=== PATIENT | female | born 1935 | race Caucasian/White ===

== ENCOUNTER 2016-03-28 05:07 | Inpatient (IN) | payer OTHER ==
[2016-03-04 13:46] VITALS: BMI 32.0
--- NOTE | 2016-03-04 14:36 | PAT Medication Instructions ---
Service Date Mar 04, 2016. Current Home Medication List Acetaminophen (Tylenol), 500 MG PO PRN Ascorbic Acid (Vitamin C), 500 MG PO QAM Calcium/Vitamin D (Os-Juan 500 Plus D), 1 TAB PO QAM Celecoxib (CeleBREX), 200 MG PO QAM Escitalopram Oxalate (Lexapro), 20 MG PO QAM Fish Oil ([place]-3), 1 CAP PO BID Fluticasone Furoate-Vilanterol (Breo Ellipta 200-25 Mcg/INH), 1 DOSE INH QAM Iron W/ Vitamins (Geritol Complete), 1 TAB PO QAM Magnesium Oxide (Mg Supplement (Magnesium), 400 MG PO QAM Valsartan (Diovan), 320 MG PO QAM [Arthromax], 900 MG PO BID [Nitrovasc], 500 MG PO QAM [Otc Eye Drops], 1 DROP OPB HS Medication Instructions For Your Scheduled Surgery - Continue per surgeon for instructions: Celecoxib (CeleBREX), 200 MG PO QAM - Hold the following medications 2 weeks prior to surgery: Fish Oil ([place]ra-3), 1 CAP PO BID [Nitrovasc], 500 MG PO QAM - Hold the following medications the morning of surgery: Valsartan (Diovan), 320 MG PO QAM Magnesium Oxide (Mg Supplement (Magnesium), 400 MG PO QAM Iron W/ Vitamins (Geritol Complete), 1 TAB PO QAM Ascorbic Acid (Vitamin C), 500 MG PO QAM Calcium/Vitamin D (Os-Juan 500 Plus D), 1 TAB PO QAM [Arthromax], 900 MG PO BID - Take the following medications the morning of surgery with a sip of water: Fluticasone Furoate-Vilanterol (Breo Ellipta 200-25 Mcg/INH), 1 DOSE INH QAM Escitalopram Oxalate (Lexapro), 20 MG PO QAM Acetaminophen (Tylenol), 500 MG PO PRN (if needed) - Take the following medications as scheduled the night before surgery: [Otc Eye Drops], 1 DROP OPB HS Acetaminophen (Tylenol), 500 MG PO PRN Arthromax], 900 MG PO BID If you have any questions please call us at [phone] (Yvette Rahman PA-C) or [phone] or [phone]
[2016-03-04 15:05] LABS: BASO % 0.2 %; BASO ABS # 0.02 K/uL (0-0.2); COMPLETE YES; HEMATOCRIT 42.1 % (37-47); IG% 0.4 %; LYMPH % 19.1 %; LYMPH ABS # 1.58 K/uL (1.2-3.4); MEAN CORPUSCULAR HEMOGLOBIN 30.1 pg (25-34); MEAN CORPUSCULAR HGB CONC 33.5 g/dl (32-36); MEAN PLATELET VOLUME 10.2 fL (7.4-10.4); MONO % 8.6 %; NEUT % 68.7 %; PLATELET COUNT 241 K/uL (130-400); RED BLOOD COUNT 4.68 M/uL (4.2-5.4); WHITE BLOOD COUNT 8.29 K/uL (4.8-10.8)
[2016-03-04 15:07] LABS: URINE APPEARANCE CLEAR (CLEAR); URINE BILIRUBIN NEG (NEG); URINE COLOR YELLOW; URINE NITRITE NEG (NEG); URINE SPECIFIC GRAVITY 1.028 (1.000-1.030); UROBILINOGEN NEG (NEG); ZZUR CULT IF INDIC CLEAN CATCH NO
[2016-03-04 15:10] LABS: MANUAL MICROSCOPIC REQUIRED? NO; REVIEW REQ? NO
[2016-03-04 15:16] LABS: PROTHROMBIN TIME (PATIENT) 10.2 SECONDS (9.0-12.0)
[2016-03-04 15:25] LABS: CALCIUM 8.8 mg/dl (8.5-10.1); CREATININE 0.57 mg/dl (0.60-1.20); POTASSIUM 4.4 mmol/L (3.5-5.1)
--- NOTE | 2016-03-04 15:25 | DIAGNOSTIC IMAGING REPORT ---
CHEST 2 VIEWS ROUTINE CLINICAL HISTORY: Preoperative chest COMPARISON STUDY: No previous studies for comparison. FINDINGS: The heart is mildly enlarged. There is no failure. No pleural effusions are visualized. There is no lobar consolidation. Increased markings at the right medial lung base, likely represent a summation of vascular markings and fat pad.[ IMPRESSION: Mild cardiac enlargement. No evidence of focal pulmonary consolidation. No evidence of failure. Electronically signed by: Lon Atkins M.D. 03/04/2016 3:23 PM Dictated Date/Time: 03/04/2016 3:22 PM
--- NOTE | 2016-03-27 09:09 | HISTORY & PHYSICAL EXAMINATION ---
DATE OF ADMISSION: 03/28/2016 CHIEF COMPLAINT: Right knee pain. HISTORY OF PRESENT ILLNESS: Valencia is a 80-year-old female with a multiple-year history of pain in her right knee. The patient rates her pain a 9/10. She has pain with her daily activities. Pain is worse with weightbearing. She uses a cane and has had injections without relief. Her pain has gotten significantly worse since November and she is now scheduled for right knee replacement. PAST MEDICAL HISTORY: Hypertension, anxiety and asthma. She denies heart disease, diabetes or DVT. PAST SURGICAL HISTORY: Nasal polyps, hysterectomy and breast reduction. SOCIAL HISTORY: The patient denies alcohol or tobacco use. She lives in a 2-story home. She lives alone and is retired. FAMILY HISTORY: Positive for diabetes and negative for DVT. MEDICATIONS: Valsartan 320 mg daily, Lexapro 20 mg daily, Celebrex 200 mg daily, omega 3, ArthroMax, NitroVasc and Breo. ALLERGIES: None. REVIEW OF SYSTEMS: See HPI. Ten other systems reviewed, all negative. PHYSICAL EXAMINATION: VITAL SIGNS: Height 5 feet 2 inches, weight 176 pounds, BMI 32. GENERAL: This is a well-developed, well-nourished female who is alert and oriented x3. Mood and affect are appropriate. HEENT: Normocephalic, atraumatic. Mucous membranes are moist and intact. NECK: Supple without lymphadenopathy. HEART: Regular rate and rhythm without murmurs, rubs or gallops. LUNGS: Clear to auscultation without wheezes or rhonchi. ABDOMEN: Soft and nontender. Bowel sounds are equal and active. EXTREMITIES: No ecchymosis, redness or warmth. She has varus deformity. Range of motion is from 10-100 degrees. She has no laxity. She is neurovascularly intact with +5/5 strength. X-RAY EXAMINATION: AP and lateral views show joint space narrowing and osteophyte formation. IMPRESSION: Degenerative joint disease, right knee. PLAN: The patient will be admitted for a right total knee arthroplasty. We will plan on aspirin for DVT prophylaxis. The patient is likely going to go to a [facility] facility versus acute rehab postop.
[2016-03-28] VITALS (8 sets, daily range): BP systolic 99–158; BP diastolic 62–105; PULSE 67–88; TEMP 36.4–36.8; O2SAT 91–98; Ht 157.5 cm; Wt 80.7 kg
[~2016-03-28] VITALS: Ht 157.5 cm; Wt 80.7 kg
[~2016-03-28 05:07] MED LIST: ACET-1256 PO; ASCO1CAP3 PO; CALC500C70 PO; CLB/200 PO; ESCI1TAB10 PO; FLUT1INH7 INH; IRON1TAB4 PO; MAGN1CAP2 PO; OMEG10007 PO; OTC EYE DROPS OPB; VALS320T PO; [UNRECOGNIZED DRUG - OTHER] PO; [UNRECOGNIZED DRUG - OTHER] PO
[2016-03-28] MEDS ORDERED: CEFAZOLIN 2000 MG/60 ML D5W 60 ML IV SCH (06:00)
[2016-03-28] MEDS ORDERED: VANCOMYCIN INJ 400 MG in NSS 100ML IR SCH (06:00)
[2016-03-28] MEDS ORDERED: CeleBREX 200 MG CAP PO SCH (06:00)
[2016-03-28] MEDS ORDERED: LACTATED RINGER'S 1000ML 500 ML IV ONE (06:00)
[2016-03-28] MEDS ORDERED: ACETAMINOPHEN 500 MG TAB PO SCH (06:00)
[2016-03-28] MEDS ORDERED: DEXAMETHASONE 4 MG TAB PO SCH (06:00)
[2016-03-28] MEDS ORDERED: POLYMYXIN B SULFATE 100,000 UNITS in NSS 100ML IR SCH (06:00)
[2016-03-28] MEDS ORDERED: OXYCODONE HCL 10 MG TABCR (OXYCONTIN) PO SCH (06:00)
[2016-03-28] MEDS ORDERED: GABAPENTIN 300 MG CAP PO SCH (06:00)
[2016-03-28] MEDS ORDERED: METOCLOPRAMIDE HCL 10 MG TAB PO SCH (06:00)
[2016-03-28] MEDS ORDERED: LACTATED RINGER'S 1000ML 1,000 ML IV SCH (06:00)
[2016-03-28] MEDS ORDERED: LACTATED RINGER'S 1000ML IV SCH (06:00)
[2016-03-28] MEDS ORDERED: ROPIVACAINE 5MG/ML 30 ML 150 MG, BUPIVACAINE/EPINEPHR 0.5% MPF 30 ML, KETOROLAC TROMETH... INFIL SCH ×7 (06:00)
[2016-03-28] MEDS ORDERED: FAMOTIDINE 20 MG TAB PO SCH (06:00)
[2016-03-28] MEDS: TRANEXAMIC ACID INJ 1,000 MG in SODIUM CHLORIDE 0.9% 100ML 100 ML IV SCH ×2 (06:14→06:30)
[2016-03-28] MEDS ORDERED: POVIDONE-IODINE OP SOLN 30 ML BTL ONE ×2 (06:27→07:34)
[2016-03-28] MEDS ORDERED: ORTHO JOINT ANESTHETIC ONE (06:27)
[2016-03-28] MEDS ORDERED: BUPIVACAINE/EPINEPHRINE 0.25% 1:200,000 30 ML VIAL ONE (06:27)
[2016-03-28] MEDS ORDERED: BUPIVACAINE 0.25% 30 ML VIAL ONE (06:28)
[2016-03-28] MEDS ORDERED: BUPIVACAINE 0.5 % 5 MG/1 ML PF 10ML VIAL ONE (06:28)
[2016-03-28] MEDS ORDERED: BACITRACIN 50000 UNIT VIAL ONE (06:29)
[2016-03-28] MEDS ORDERED: MIDAZOLAM HCL 1 MG/ML 2ML VIAL ONE ×2 (06:40→06:46)
--- NOTE | 2016-03-28 06:44 | History & Physical Bridge Note ---
H&P Re-Evaluation Bridge Note: I have examined the patient, reviewed the History & Physical and in the interval since the performance of the History & Physical I have noted the following changes of clinical significance: No changes noted
[2016-03-28] MEDS ORDERED: LIDOCAINE HCL 1% 20 ML VIAL ONE (07:07)
[2016-03-28] MEDS ORDERED: METHYLPREDNISOLONE ACETATE 80 MG/ML VIAL ONE (07:08)
[2016-03-28] MEDS ORDERED: HYDROmorphone INJ 1 MG/ML SYR IV PRN (08:00)
[2016-03-28] MEDS ORDERED: ONDANSETRON INJ 2 MG/ML 2 ML VIAL IV PRN ×2 (08:00→08:45)
[2016-03-28] MEDS ORDERED: FENTANYL CITRATE INJ 50 MCG/1 ML 2 ML VIAL IV PRN (08:00)
[2016-03-28] MEDS ORDERED: MEPERIDINE HCL 25 MG/ML CARP IV PRN (08:00)
[2016-03-28] MEDS ORDERED: ATROPINE SULFATE 0.1 MG/ML 5ML SYR IV PRN (08:00)
[2016-03-28] MEDS ORDERED: EpHEDrine SULFATE INJ 50 MG/ML AMP IV PRN (08:00)
[2016-03-28] MEDS ORDERED: LABETALOL HCL IV 5 MG/ML 20ML IV PRN (08:00)
[2016-03-28] MEDS ORDERED: PROPOFOL IV EMULSION 10 MG/ML 20 ML VIAL IV ONE ×2 (08:03→08:26)
[2016-03-28] MEDS ORDERED: PHENYLEPHRINE 100MCG/ML 5ML SYR ONE (08:03)
--- NOTE | 2016-03-28 08:41 | [facility] Post Operative Brief Note ---
Immediate Operative Summary Operative Date Mar 28, 2016. Pre-Operative Diagnosis Degenerative joint disease, right knee Post-Operative Diagnosis Degenerative joint disease, right knee AND L KNEE OSTEOPOROSIS Procedure(s) Performed right knee total arthroplasty, left knee injection Surgeon Dr Joel Rush Traffic Coordinator Surgeon(s) Aria Vazquez PA-C Estimated Blood Loss 5 Findings SEVERE DZ OSTEOPENIA Specimens A: Right knee bone and tissue Complication(s) None Disposition Recovery Room / PACU
[2016-03-28] MEDS ORDERED: METOCLOPRAMIDE HCL INJ 5 MG/ML 2 ML VIAL IV PRN (08:45)
[2016-03-28] MEDS ORDERED: ALUMINUM/MAGNESIUM/SIMETH (MAALOX MAX) 30 ML UDC PO PRN (08:45)
[2016-03-28] MEDS ORDERED: SOD PHOSPHATE/SOD BIPHOSPHATE ENEMA 132 ML BTL PR PRN (08:45)
[2016-03-28] MEDS ORDERED: BISACODYL 10 MG SUPP PR PRN (08:45)
[2016-03-28] MEDS ORDERED: ZOLPIDEM TARTRATE 5 MG TAB PO PRN (08:45)
[2016-03-28] MEDS ORDERED: MAGNESIUM HYDROXIDE SUSP 30 ML UDC PO PRN (08:45)
[2016-03-28] MEDS ORDERED: KETOROLAC TROMETHAMINE 15 MG/ML VIAL IV. PRN (08:45)
[2016-03-28] MEDS ORDERED: MoRPHine SULFATE 2 MG/ML CARP IV PRN (08:45)
[2016-03-28] MEDS ORDERED: DiphenhydrAMINE HCL 50 MG/ML VIAL IV PRN (08:45)
[2016-03-28] MEDS ORDERED: TRAMADOL HCL 50 MG TAB PO PRN (08:45)
[2016-03-28] MEDS: ESCITALOPRAM OXALATE 20 MG TAB PO SCH (09:00)
--- NOTE | 2016-03-28 09:31 | DIAGNOSTIC IMAGING REPORT ---
RIGHT KNEE 2 VIEWS History: Right total knee arthroplasty. Degenerative arthritis. Postop. FINDINGS: The patient is status post a right total knee arthroplasty. The hardware is intact. No fracture or dislocation. Skin luis and surgical drains are in place. IMPRESSION: Right total knee arthroplasty. No evidence for hardware complication. Electronically signed by: Ryland Campo M.D. 03/28/2016 9:30 AM Dictated Date/Time: 03/28/2016 9:29 AM
--- NOTE | 2016-03-28 10:45 | Anesthesiology Progress Note ---
Anesthesia Post Op Note Date & Time Mar 28, 2016 at 10:44 Vital Signs Pain Intensity: 0.0 Vital Signs Past 12 Hours Date Time Temp Pulse Resp B/P Pulse Ox O2 Delivery O2 Flow Rate FiO2 03/28/16 10:32 82 16 108/65 92 Nasal Cannula 2.0 03/28/16 09:50 36.5 88 16 119/73 96 Nasal Cannula 2.0 03/28/16 09:50 93 Nasal Cannula 2.0 03/28/16 09:50 93 Nasal Cannula 2.0 03/28/16 09:30 88 12 119/64 95 Nasal Cannula 4 Mask 03/28/16 09:20 89 12 137/64 97 Nasal Cannula 10 Mask 03/28/16 09:10 37.5 90 12 139/72 98 Nasal Cannula 10 Mask 03/28/16 05:40 36.8 88 20 158/105 98 Room Air Notes Mental Status: alert / awake / arousable, participated in evaluation Pt Amnestic to Procedure: Yes Nausea / Vomiting: adequately controlled Pain: adequately controlled Airway Patency, RR, SpO2: stable & adequate BP & HR: stable & adequate Hydration State: stable & adequate Neuraxial Anesthesia: was administered, sensory block is resolving Anesthetic Complications: no major complications apparent
[2016-03-28] MEDS: D5W AND 1/2NSS + 20MEQ KCL 1,000 ML IV SCH ×2 (11:14→20:53)
[2016-03-28] MEDS: MULTIVITAMIN TAB PO SCH (13:09)
[2016-03-28] MEDS: ASPIRIN 81 MG ECTAB PO SCH ×2 (13:09→20:52)
[2016-03-28] MEDS: ASCORBIC ACID 500 MG TAB PO SCH (13:09)
[2016-03-28] MEDS: MAGNESIUM OXIDE 400 MG TAB PO SCH (13:09)
[2016-03-28] MEDS: CALCIUM 600MG + VIT D 400 IU TAB PO SCH (13:09)
[2016-03-28] MEDS: PANTOprazole SOD 40 MG TAB PO SCH (13:09)
[2016-03-28] MEDS: VALSARTAN 80 MG TAB PO SCH (13:09)
[2016-03-28] MEDS: ACETAMINOPHEN 500 MG TAB PO SCH ×2 (13:57→20:52)
[2016-03-28] MEDS ORDERED: PNEUMOCOCCAL ADMINISTRATION CHARGE ONE (14:15)
[2016-03-28] MEDS ORDERED: PNEUMOCOCCAL POLYSACCHARIDES 25 MCG/0.5 ML VIAL/SYR IM. ONE (14:15)
[2016-03-28] MEDS: CLINDAMYCIN IV 600 MG in DEXTROSE 5% ADD-VANTAGE 50ML 50 ML IV SCH (15:37)
[2016-03-28] MEDS: BREO ELLIPTA: ORDER AWAITING ACTION SCH (16:00)
--- NOTE | 2016-03-28 16:17 | OPERATIVE REPORT ---
DATE OF OPERATION: 03/28/2016 PREOPERATIVE DIAGNOSES: 1. Severe degenerative arthritis, right knee with osteoporosis, severe. 2. Degenerative arthritis, left knee. PROCEDURES: 1. Right total knee replacement with stem. 2. Intra-articular injection, left knee. SURGEON: Joel Rush MD LOG TRUCK DRIVER: JOHANA Olvera ANESTHESIA: Spinal. TOURNIQUET TIME: 85 minutes at 275 mmHg. DRAINS: Hemovac x2. CULTURES: None. COMPLICATIONS: None. COMPONENTS USED: [employer] [employer] [facility] revision knee system: Femur size 4 with 6-mm offset, 14 x 120 stem. Tibia size 3 with 2-mm offset, 12 x 120 stem, 9-mm high flex insert. Patella size 32. NOTE: JOHANA Olvera was present and assisted throughout due to the complicated nature of this case. She helped with preparation and set up. She first assisted throughout. She personally closed the capsule, subcutaneous and skin layers and applied the postoperative dressing. DESCRIPTION OF PROCEDURE: Following satisfactory spinal, the patient was supine. Following a first surgical time-out, the left knee was prepared sterilely and injected with 80 mg of Depo-Medrol and 5 mL of 1% lidocaine and a sterile dressing applied. Tourniquet was then placed on the right. The right knee was prepared with ChloraPrep and draped sterilely. Following a surgical time-out, the tourniquet was inflated because of the need to use intramedullary stems. A midline incision was made with a median parapatellar arthrotomy. The knee showed severe grade 4 changes throughout. There was absence of the anterior cruciate and severe wear of the patella. Osteophytes were removed. The IM system was used first to trim the distal femur and then the IM reaming system was used on the femur and tibia simultaneously. The bone was of osteopenic, but not as quite as severe osteoporosis as would have been predicted on the x-ray. Using the IM system, the femur was shaped for a size 4 component. When all cuts were completed, the attention was turned to the tibia. Intramedullary cutting guide was used to resect the tibia in neutral. The patella was freehand cut and then soft tissue balancing was completed in flexion and extension. A trial reduction with the above-mentioned components showed good tensioning stability on the collateral ligaments, excellent patellar tracking to more than 120 degrees with good stability. The trial components were removed. Cement restriction plugs were placed within the canals. The local anesthetic was placed and after irrigation, the components were cemented using Simplex G cement. While the cement was hardening, a Betadine soak was performed. When the cement had hardened, the Betadine was irrigated. Two drains were placed. After irrigation, the arthrotomy was closed with a running suture of 0 V-Loc and reinforced with #1 Vicryl. Subcutaneous tissues were closed with 2-0 Vicryl. The skin was closed with surgical luis and a surface wound VAC was applied. The tourniquet was deflated. The patient was returned to her bed in stable condition. I attest to the content of the Intraoperative Record and any orders documented therein. Any exceptio ns are noted below.
[2016-03-28] MEDS: OXYCODONE HCL IR 5 MG TAB (IMMEDIATE RELEASE) PO PRN (20:11)
[2016-03-28] MEDS: SENNA 8.6 MG TAB PO SCH (20:52)
[2016-03-29] VITALS (7 sets, daily range): BP systolic 107–146; BP diastolic 66–80; PULSE 69–77; TEMP 36.4–36.8; O2SAT 91–93
[2016-03-29] MEDS: CLINDAMYCIN IV 600 MG in DEXTROSE 5% ADD-VANTAGE 50ML 50 ML IV SCH (00:24)
[2016-03-29 05:43] LABS: HEMATOCRIT 33.9 % (37-47); MEAN CELL VOLUME 88.5 fL (80-100); MEAN CORPUSCULAR HEMOGLOBIN 29.8 pg (25-34); MEAN CORPUSCULAR HGB CONC 33.6 g/dl (32-36); MEAN PLATELET VOLUME 9.9 fL (7.4-10.4); PLATELET COUNT 239 K/uL (130-400); RED BLOOD COUNT 3.83 M/uL (4.2-5.4); WHITE BLOOD COUNT 12.41 K/uL (4.8-10.8)
[2016-03-29] MEDS: ACETAMINOPHEN 500 MG TAB PO SCH ×3 (06:12→21:06)
[2016-03-29 06:15] LABS: BUN/CREATININE RATIO 20.5 (10-20); CREATININE 0.65 mg/dl (0.60-1.20); POTASSIUM 4.4 mmol/L (3.5-5.1)
[2016-03-29] MEDS: D5W AND 1/2NSS + 20MEQ KCL 1,000 ML IV SCH (06:17)
[2016-03-29] MEDS: BREO ELLIPTA: ORDER AWAITING ACTION SCH ×3 (08:00→14:40)
--- NOTE | 2016-03-29 08:13 | Orthopedic Progress Note ---
Orthopedic Progress Note Date of Service Mar 29, 2016. Subjective Post OP Day: 1 Reports: feeling well, pain controlled w PO medications, Denies: SOB, chest pain , complaints, light headedness, nausea / vomiting Objective calves soft nontender, N/V intact, dressing C/D/I, A&O x3, toes mobile, hemovac drainage (100 last shifyt) Date Time Temp Pulse Resp B/P Pulse Ox O2 Delivery O2 Flow Rate FiO2 03/29/16 04:25 36.4 73 16 130/67 93 Room Air 03/29/16 00:32 Room Air 03/29/16 00:00 36.8 77 16 128/73 91 Room Air 03/28/16 19:10 Room Air 03/28/16 18:37 36.8 72 18 144/85 91 Room Air 03/28/16 15:51 36.4 67 18 124/72 96 Nasal Cannula 2.0 03/28/16 12:49 86 16 127/79 95 Nasal Cannula 2.0 03/28/16 11:52 72 16 99/62 95 Nasal Cannula 2.0 03/28/16 10:50 36.4 88 16 131/75 94 Nasal Cannula 2.0 03/28/16 10:32 82 16 108/65 92 Nasal Cannula 2.0 03/28/16 09:50 36.5 88 16 119/73 96 Nasal Cannula 2.0 03/28/16 09:50 93 Nasal Cannula 2.0 03/28/16 09:50 93 Nasal Cannula 2.0 03/28/16 09:30 88 12 119/64 95 Nasal Cannula 4 Mask 03/28/16 09:20 89 12 137/64 97 Nasal Cannula 10 Mask 03/28/16 09:10 37.5 90 12 139/72 98 Nasal Cannula 10 Mask Laboratory Results 24 Hours: Test 03/29/16 05:15 Hematocrit 33.9 % Hemoglobin 11.4 g/dL Assessment & Plan Assessment: POD 1 REVISION TKA HTN ANXIETY Plan: MONITOR TODAY POSSIBLE DC PREFERS ADV HH Inhouse Planning Pain Management: Celebrex, Oxycontin, PO Tylenol, Oxy IR DVT Prophylaxis: TEDs, SCDs, ASA Discharge Planning Discharge Planning: home with home health Pain Management: Celebrex, Oxycontin, PO Tylenol, Oxy IR DVT Prophylaxis: TEDs, ASA Therapy: Physical Therapy, Occupational Therapy
[2016-03-29] MEDS: MAGNESIUM OXIDE 400 MG TAB PO SCH (08:27)
[2016-03-29] MEDS: ASCORBIC ACID 500 MG TAB PO SCH (08:28)
[2016-03-29] MEDS: OXYCODONE HCL IR 5 MG TAB (IMMEDIATE RELEASE) PO PRN (08:28)
[2016-03-29] MEDS: PANTOprazole SOD 40 MG TAB PO SCH (08:28)
[2016-03-29] MEDS: CALCIUM 600MG + VIT D 400 IU TAB PO SCH (08:28)
[2016-03-29] MEDS: ASPIRIN 81 MG ECTAB PO SCH ×2 (08:28→21:06)
[2016-03-29] MEDS: MULTIVITAMIN TAB PO SCH (08:28)
[2016-03-29] MEDS: ESCITALOPRAM OXALATE 20 MG TAB PO SCH (08:28)
[2016-03-29] MEDS: VALSARTAN 80 MG TAB PO SCH (08:29)
[2016-03-29] MEDS ORDERED: NURSING VERBAL MED ORDER ONE (18:15)
--- NOTE | 2016-03-29 20:52 | Discharge Instructions ---
Discharge Instructions Admission Reason for Admission: Right Knee Degenerative Arthritis Discharge Discharge Diagnosis / Problem: Right Knee Djd Discharge Goals Goal(s): Decrease discomfort, Improve function Activity Recommendations Activity Limitations: per Instructions/Follow-up section Weightbearing Status: Right non-weightbearing . Instructions / Follow-Up Instructions / Follow-Up ACTIVITY RECOMMENDATIONS: SELF CARE INSTRUCTIONS AFTER TOTAL KNEE REPLACEMENT A. You may need to continue a physical therapy program after discharge from the hospital. There are several options available to you. Your doctor will assist you in selecting the best one for you. 1. An out-patient facility 2 to 3 times a week for therapy or home therapy. 2. Continue working on all exercises taught to you in the hospital. Your goals should be to increase bending of your knee to 90 degrees and beyond and to fully straighten your knee. B. You may progress at your own pace from walking with a walker or crutches to a cane; then to no assistive devices. C. Make walking a part of your daily routine. Be up as much as comfortable with rest periods throughout the day. Rest with leg elevation is very important. Use the ice wrap frequently for the first 3-4 weeks. D. There are no restrictions on activities. You may ride in a car, shop, participate in civilian technician and all social activities. E. Wear the long elastic stockings (EROS hose) 20 hours a day for 2 weeks after surgery. They can be removed several times a day for laundering and for a bath. F. You may shower, no tub baths until cleared by your doctor. SPECIAL CARE INSTRUCTIONS: VERY IMPORTANT TO READ AND REVIEW A. There are a few signs you need to watch for after you are home. Call [facility] if you notice any of the followin. Increased severe knee pain. Some pain is expected especially when you exercise. 2. Increased swelling in your leg or knee; pain or swelling of the calf muscle in either lower leg. 3. Any fluid drainage from the incision. 4. Shortness of breath or chest pain. B. Please call [facility] at if you have any concerns or questions about your operation or recovery. The doctor or his nurse will return your call promptly. C. You must take antibiotics before dental work, bladder, bowel or other surgery. Your doctor will provide you with a permanent care to carry describing this precaution. IMPORTANT: * REMEMBER TO TAKE ASPIRIN, 81 MG, TWICE DAILY FOR 4 WEEKS UNLESS OTHERWISE DIRECTED. THIS IS YOUR BLOOD THINNER. * HIGH RISK PATIENTS MAY BE PRESCRIBED A STRONGER BLOOD THINNER. THIS WILL BE PROVIDED AT DISCHARGE. * CALL IF INCREASED PAIN, REDNESS, DRAINAGE OR FEVER GREATER THAT 101. * WEAR EROS HOSE 20 HOURS PER DAY FOR 2 WEEKS. * DERMABOND Prineo- This is a mesh tape dressing that is covered with glue. It should remain in place until the incision is properly healed, usually 10-14 days. This dressing is designed to naturally slough off. You may trim the excess mesh tape as it peels off. Incision may be briefly wet in a shower. Dry immediately by blotting with a clean, dry towel. Do not bath or swim until instructed by your doctor. Do not scratch, rub, or pick at the dressing. Do not apply any topical ointments or lotions until dressing is completely removed and/or instructed by your doctor. There may be a small piece of suture material at one end of your incision. Do not pull or trim this. If it is bothersome or catching on clothing, you may cover it with a band-aid. . FOLLOW UP VISIT: If appointment is not already scheduled: Please call [facility] to make a follow-up appointment for 2 weeks after your surgery at . Current Hospital Diet Patient's current hospital diet: Regular Diet Discharge Diet Recommended Diet: Regular Diet Procedures Procedures Performed: right knee total arthroplasty, left knee injection Pending Studies Studies pending at discharge: no Medical Emergencies . Who to Call and When: Medical Emergencies: If at any time you feel your situation is an emergency, please call 911 immediately. . Non-Emergent Contact Non-Emergency issues call your: Surgeon Call Non-Emergent contact if: temperature is above 101.5, your pain is not controlled, your pain is worsening, wound has increased drainage, wound has increased redness . "Provider Documentation" section prepared by Hua Alfaro. VTE Core Measure Inpt VTE Proph given/why not?: Other Anticoagulation, T.E.D. Stockings, SCD's [place] Drug Monitoring Program Search Results: patient reviewed within database, no issues identified
[2016-03-29] MEDS: SENNA 8.6 MG TAB PO SCH (21:06)
[2016-03-30] VITALS: BP 171/76; PULSE 79; TEMP 36.5; O2SAT 93
[2016-03-30 00:09] VITALS: O2SAT 93
[2016-03-30] MEDS: OXYCODONE HCL IR 5 MG TAB (IMMEDIATE RELEASE) PO PRN ×2 (04:04→13:31)
[2016-03-30] MEDS: ACETAMINOPHEN 500 MG TAB PO SCH ×2 (05:32→13:31)
[2016-03-30 05:37] VITALS: BP 169/88
[2016-03-30 06:30] VITALS: BP 167/90; PULSE 93; TEMP 36.6; O2SAT 91
[2016-03-30] MEDS: BREO ELLIPTA: ORDER AWAITING ACTION SCH ×2 (07:26)
[2016-03-30] MEDS: ASCORBIC ACID 500 MG TAB PO SCH (07:27)
[2016-03-30] MEDS: PANTOprazole SOD 40 MG TAB PO SCH (07:27)
[2016-03-30] MEDS: MULTIVITAMIN TAB PO SCH (07:27)
[2016-03-30] MEDS: MAGNESIUM OXIDE 400 MG TAB PO SCH (07:27)
[2016-03-30] MEDS: ASPIRIN 81 MG ECTAB PO SCH (07:28)
[2016-03-30] MEDS: VALSARTAN 80 MG TAB PO SCH (07:28)
[2016-03-30] MEDS: ESCITALOPRAM OXALATE 20 MG TAB PO SCH (07:28)
[2016-03-30] MEDS: CALCIUM 600MG + VIT D 400 IU TAB PO SCH (07:28)
--- NOTE | 2016-03-30 07:58 | Orthopedic Progress Note ---
Orthopedic Progress Note Date of Service Mar 30, 2016. Subjective Post OP Day: 2 Reports: feeling well, pain controlled w PO medications, Denies: SOB, chest pain Objective calves soft nontender, dressing C/D/I, A&O x3, toes mobile Date Time Temp Pulse Resp B/P Pulse Ox O2 Delivery O2 Flow Rate FiO2 03/30/16 06:30 36.6 93 18 167/90 91 Room Air 03/30/16 05:37 169/88 03/30/16 00:09 93 Room Air 03/30/16 00:00 36.5 79 16 171/76 93 Room Air 03/29/16 19:25 Room Air 03/29/16 19:01 36.6 03/29/16 15:44 36.7 03/29/16 15:03 36.8 77 18 146/80 92 Room Air 03/29/16 11:23 36.6 69 16 107/66 92 Room Air 03/29/16 10:17 Room Air Assessment & Plan Assessment: POD 2 REVISION TKA HTN ANXIETY Plan: MONITOR TODAY POSSIBLE DC PREFERS ADV HH Inhouse Planning Pain Management: Celebrex, Oxycontin, PO Tylenol, Oxy IR DVT Prophylaxis: TEDs, SCDs, ASA Discharge Planning Discharge Planning: home with home health Pain Management: Celebrex, Oxycontin, PO Tylenol, Oxy IR DVT Prophylaxis: TEDs, ASA Therapy: Physical Therapy, Occupational Therapy
[2016-03-30] MEDS ORDERED: RXC5 PO (08:12)
[2016-03-30] MEDS ORDERED: ASPEC81 PO (08:12)
[2016-03-30] MEDS ORDERED: ACET-1138 PO (08:12)
[2016-03-30] MEDS ORDERED: MORP15TA19 PO (08:12)
[2016-03-30] MEDS ORDERED: CLB/200 PO (08:12)
[2016-03-30] MEDS ORDERED: SNK PO (08:12)
[2016-03-30] MEDS ORDERED: CeleBREX 200 MG CAP PO SCH (09:00)
[2016-03-30 09:23] VITALS: BP 167/90; PULSE 93; TEMP 36.6; O2SAT 91
[2016-03-31] MEDS ORDERED: CeleBREX 200 MG CAP PO SCH (09:00)
--- NOTE | 2016-04-15 15:15 | DISCHARGE SUMMARY ---
DISCHARGE DIAGNOSIS: Degenerative joint disease, right knee. SECONDARY DIAGNOSIS: None. CONSULTS: None. COMPLICATIONS: None. PROCEDURE: The patient underwent a right total knee arthroplasty with Dr. Rush on 03/28/2016. BRIEF HISTORY: Please see previously dictated history and physical. HOSPITAL SUMMARY: The patient was admitted on the above day for the above procedure. Procedure went without complication. Postop day 1, the patient was feeling well without complaints. She denied chest pain or shortness of breath. Vital signs were stable. She was afebrile. Dressing was clean, dry and intact. She was neurovascularly intact. Calves were soft and nontender. Hemovac drained 100 mL. Hemoglobin was 11.4. The patient began physical therapy per protocol. Postop day 2, the patient continued to improve. She denied chest pain or shortness of breath. Vital signs were stable. She was afebrile. Dressing was clean, dry and intact. She was neurovascularly intact. Calves were soft and nontender. The patient continued to progress with therapy and was discharged to home later that day in stable condition. For further review please see the chart. Lab, x-ray data and discharge instructions as per chart.
[2016-06-26] MEDS ORDERED: ACET-1256 PO (11:06)
[2016-06-26] MEDS ORDERED: SENNTAB23 PO (11:08)
== END 2016-03-30 14:13 | disposition home health service (06) | DRG 470 ==
LOC: ENRESERVTM → ENRESERVDT → C.ACU 05:07 → C.3E 06:30
PROVIDERS: ADMIT Orthopaedic Surgery; ATTEND Orthopaedic Surgery
PROC: 3E0U3BZ Introduction of Anesthetic Agent into Joints, Percutaneous Approach (ICD-10-PCS; principal; 2016-03-28 07:00)
PROC: 0SRC0J9 Replacement of Right Knee Joint with Synthetic Substitute, Cemented, Open Approach (ICD-10-PCS; principal; 2016-03-28 07:00)
PROC: 3E0U33Z Introduction of Anti-inflammatory into Joints, Percutaneous Approach (ICD-10-PCS; principal; 2016-03-28 07:00)
DX: M17.0 Bilateral primary osteoarthritis of knee (principal); M81.0 Age-related osteoporosis without current pathological fracture; M85.861 Other specified disorders of bone density and structure, right lower leg; I10 Essential (primary) hypertension; J45.909 Unspecified asthma, uncomplicated; F41.9 Anxiety disorder, unspecified; F32.9 Major depressive disorder, single episode, unspecified; G47.33 Obstructive sleep apnea (adult) (pediatric); E66.9 Obesity, unspecified; Z68.32 Body mass index [BMI] 32.0-32.9, adult; Z23 Encounter for immunization; Z79.1 Long term (current) use of non-steroidal anti-inflammatories (NSAID); Z79.51 Long term (current) use of inhaled steroids; Z79.899 Other long term (current) drug therapy

== ENCOUNTER 2016-07-15 08:30 | Inpatient (IN) | payer OTHER ==
[2016-06-26 11:09] VITALS: BMI 32.0
--- NOTE | 2016-06-26 11:33 | PAT Medication Instructions ---
Service Date June 26, 2016. Current Home Medication List Acetaminophen (Tylenol), 500 MG PO PRN Ascorbic Acid (Vitamin C), 500 MG PO QAM Calcium/Vitamin D (Os-Juan 500 Plus D), 1 TAB PO QAM Celecoxib (CeleBREX), 200 MG PO QAM Escitalopram Oxalate (Lexapro), 20 MG PO QAM Fish Oil ([place]-3), 1 CAP PO QAM Fluticasone Furoate-Vilanterol (Breo Ellipta 200-25 Mcg/INH), 1 DOSE INH QAM Magnesium Oxide (Mg Supplement (Magnesium), 400 MG PO QAM Sennosides-Docusate Sodium (Stool Softener), 1 TAB PO QAM Valsartan (Diovan), 320 MG PO QAM Medication Instructions Ascorbic Acid (Vitamin C), 500 MG PO QAM For Your Scheduled Surgery - Instructions per surgeon: Celecoxib (CeleBREX), 200 MG PO QAM - Hold the following medications 2 weeks prior to surgery: Fish Oil ([place]-3), 1 CAP PO QAM - Hold the following medications the morning of surgery: Calcium/Vitamin D (Os-Juan 500 Plus D), 1 TAB PO QAM Magnesium Oxide (Mg Supplement (Magnesium), 400 MG PO QAM Sennosides-Docusate Sodium (Stool Softener), 1 TAB PO QAM Valsartan (Diovan), 320 MG PO QAM - Take the following medications the morning of surgery with a sip of water OTHERWISE NOTHING TO EAT OR DRINK AFTER MIDNIGHT: Acetaminophen (Tylenol), 500 MG PO PRN (may take if needed up to 4 hours prior to surgery) Fluticasone Furoate-Vilanterol (Breo Ellipta 200-25 Mcg/INH), 1 DOSE INH QAM Escitalopram Oxalate (Lexapro), 20 MG PO QAM - Take the following medications as scheduled the night before surgery: Acetaminophen (Tylenol), 500 MG PO PRN If you have any questions please call us at [phone] or [phone] or [phone]
[2016-06-26 12:34] LABS: URINE APPEARANCE CLEAR (CLEAR); URINE BILIRUBIN NEG (NEG); URINE COLOR YELLOW; URINE NITRITE NEG (NEG); URINE SPECIFIC GRAVITY 1.018 (1.000-1.030); UROBILINOGEN NEG (NEG); ZZUR CULT IF INDIC CLEAN CATCH NO
[2016-06-26 12:38] LABS: MANUAL MICROSCOPIC REQUIRED? NO; REVIEW REQ? NO
[2016-06-26 12:42] LABS: BASO % 0.4 %; BASO ABS # 0.02 K/uL (0-0.2); COMPLETE YES; EOS % 5.6 %; HEMATOCRIT 39.4 % (37-47); LYMPH % 18.6 %; MEAN CELL VOLUME 88.5 fL (80-100); MEAN CORPUSCULAR HEMOGLOBIN 28.3 pg (25-34); MONO % 11.6 %; NEUT % 63.8 %; PLATELET COUNT 279 K/uL (130-400); RED BLOOD COUNT 4.45 M/uL (4.2-5.4); WHITE BLOOD COUNT 4.84 K/uL (4.8-10.8)
[2016-06-26 12:43] LABS: PROTHROMBIN TIME (PATIENT) 10.7 SECONDS (9.0-12.0)
[2016-06-26 13:20] LABS: BUN/CREATININE RATIO 28.8 (10-20); CREATININE 0.48 mg/dl (0.60-1.20); POTASSIUM 4.2 mmol/L (3.5-5.1)
[2016-06-26 13:24] LABS: CALCIUM 8.9 mg/dl (8.5-10.1)
--- NOTE | 2016-07-14 16:06 | HISTORY & PHYSICAL EXAMINATION ---
DATE OF ADMISSION: 07/15/2016 CHIEF COMPLAINT: Left knee pain. HISTORY OF PRESENT ILLNESS: Ms. Espino is an 81-year-old female with a 1 year history of left knee pain. She rates her pain a 9/10. She has pain with her daily activities. She has limited standing and walking tolerance. Pain is worse with weightbearing. The patient has had injections, NSAID, Tylenol and home exercise program without relief. She has failed conservative treatment and is scheduled for left knee replacement. PAST MEDICAL HISTORY: Hypertension, asthma, anxiety, obesity. She denies heart disease, diabetes or DVT. PAST SURGICAL HISTORY: Right total knee replacement, breast reduction, and hysterectomy. SOCIAL HISTORY: The patient denies alcohol or tobacco use. She lives in a single story home. She lives alone and is retired. She has family close by. FAMILY HISTORY: Positive for diabetes. MEDICATIONS: Celebrex 200 mg b.i.d., Lexapro 20 mg daily, valsartan 320 mg daily, Tylenol 1000 mg every 8 hours p.r.n., omega 3 fish oil, Lexapro 20 mg, and Breo Ellipta 200 mg. ALLERGIES: LEVOFLOXACIN, TRIMETHOPRIM AND SULFAMETHIZOLE. REVIEW OF SYSTEMS: See HPI. Ten other systems reviewed, all negative. PHYSICAL EXAMINATION: VITAL SIGNS: Height 5 feet 2 inches, weight 178 pounds. BMI is 33. GENERAL: This is a well-developed, well-nourished female who is alert and oriented x3. Mood and affect are appropriate. HEENT: Normocephalic, atraumatic. Mucous membranes are moist and intact. NECK: Supple without lymphadenopathy. HEART: Regular rate and rhythm without murmurs, rubs or gallops. LUNGS: Clear to auscultation without wheezes or rhonchi. ABDOMEN: Soft and nontender. Bowel sounds are equal and active. EXTREMITIES: No ecchymosis, redness or warmth. The patient has varus deformity. Range of motion is from 0-115 degrees with +1 laxity. She is neurovascularly intact with +5/5 strength. X-RAY EXAMINATION: AP and lateral views show joint space narrowing and osteophyte formation. IMPRESSION: Degenerative joint disease, left knee. PLAN: The patient will be admitted for a left total knee arthroplasty. We will plan on aspirin for DVT prophylaxis. She will have [facility] for home physical therapy.
[2016-07-15] VITALS (9 sets, daily range): BP systolic 113–155; BP diastolic 69–86; PULSE 68–77; TEMP 36.4–36.7; O2SAT 93–99; Ht 157.5 cm; Wt 81.3 kg
[~2016-07-15] VITALS: Ht 157.5 cm; Wt 81.3 kg
[2016-07-15] MEDS: TRANEXAMIC ACID INJ 1,000 MG in SODIUM CHLORIDE 0.9% 100ML 100 ML IV SCH ×2 (06:30→11:32)
[~2016-07-15 08:30] MED LIST changes: +ACETAMINOPHEN 500 MG TAB PO SCH; +BUPIVACAINE 0.5 % 5 MG/1 ML PF 10ML VIAL ONE; +CEFAZOLIN 2000 MG/60 ML D5W 60 ML IV SCH; +DEXAMETHASONE 4 MG TAB PO SCH; +FAMOTIDINE 20 MG TAB PO SCH; +GABAPENTIN 300 MG CAP PO SCH; -IRON1TAB4 PO; +LACTATED RINGER'S 1000ML 1,000 ML IV SCH; +LACTATED RINGER'S 1000ML 500 ML IV ONE; +LACTATED RINGER'S 1000ML IV SCH; +METOCLOPRAMIDE HCL 10 MG TAB PO SCH; -OTC EYE DROPS OPB; +POLYMYXIN B SULFATE 100,000 UNITS in NSS 100ML IR SCH; +SENNTAB23 PO; +VANCOMYCIN INJ 400 MG in NSS 100ML IR SCH; -[UNRECOGNIZED DRUG - OTHER] PO; -[UNRECOGNIZED DRUG - OTHER] PO
[2016-07-15] MEDS ORDERED: EpHEDrine SULFATE INJ 50 MG/ML AMP IV PRN (09:30)
[2016-07-15] MEDS ORDERED: ATROPINE SULFATE 0.1 MG/ML 5ML SYR IV PRN (09:30)
[2016-07-15] MEDS ORDERED: FENTANYL CITRATE INJ 50 MCG/1 ML 2 ML VIAL IV PRN (09:30)
[2016-07-15] MEDS ORDERED: ONDANSETRON INJ 2 MG/ML 2 ML VIAL IV PRN ×2 (09:30→13:00)
[2016-07-15] MEDS ORDERED: MIDAZOLAM HCL 1 MG/ML 2ML VIAL ONE ×2 (10:07)
[2016-07-15] MEDS ORDERED: BUPIVACAINE/EPINEPHRINE 0.25% 1:200,000 30 ML VIAL ONE (11:12)
[2016-07-15] MEDS ORDERED: ORTHO JOINT ANESTHETIC ONE (11:12)
[2016-07-15] MEDS ORDERED: POVIDONE-IODINE OP SOLN 30 ML BTL ONE (11:12)
[2016-07-15] MEDS ORDERED: BACITRACIN 50000 UNIT VIAL ONE (11:13)
[2016-07-15] MEDS ORDERED: FENTANYL CITRATE INJ 50 MCG/1 ML 2 ML VIAL ONE (12:29)
[2016-07-15] MEDS: ROPIVACAINE 5MG/ML 30 ML 150 MG, BUPIVACAINE/EPINEPHR 0.5% MPF 30 ML, KETOROLAC TROMETH... INFIL SCH ×14 (12:35→12:37)
--- NOTE | 2016-07-15 12:58 | [facility] Post Operative Brief Note ---
Immediate Operative Summary Operative Date Jul 15, 2016. Pre-Operative Diagnosis Left knee degenerative joint disease Post-Operative Diagnosis same Procedure(s) Performed Left Total Knee Arthroplasty Surgeon Dr. Joel Rush Powder Compounder Surgeon(s) Hua Moura PA-C Estimated Blood Loss 100ML Findings SEVERE DZ Specimens A. Left knee bone and tissue Complication(s) None Disposition Recovery Room / PACU
[2016-07-15] MEDS ORDERED: SOD PHOSPHATE/SOD BIPHOSPHATE ENEMA 132 ML BTL PR PRN (13:00)
[2016-07-15] MEDS ORDERED: KETOROLAC TROMETHAMINE 15 MG/ML VIAL IV. PRN (13:00)
[2016-07-15] MEDS ORDERED: METOCLOPRAMIDE HCL INJ 5 MG/ML 2 ML VIAL IV PRN (13:00)
[2016-07-15] MEDS ORDERED: TRAMADOL HCL 50 MG TAB PO PRN (13:00)
[2016-07-15] MEDS ORDERED: MoRPHine SULFATE 2 MG/ML CARP IV PRN (13:00)
[2016-07-15] MEDS ORDERED: MAGNESIUM HYDROXIDE SUSP 30 ML UDC PO PRN (13:00)
[2016-07-15] MEDS ORDERED: ALUMINUM/MAGNESIUM/SIMETH (MAALOX MAX) 30 ML UDC PO PRN (13:00)
[2016-07-15] MEDS ORDERED: BISACODYL 10 MG SUPP PR PRN (13:00)
[2016-07-15] MEDS ORDERED: ZOLPIDEM TARTRATE 5 MG TAB PO PRN (13:00)
[2016-07-15] MEDS ORDERED: DiphenhydrAMINE HCL 50 MG/ML VIAL IV PRN (13:00)
[2016-07-15] MEDS ORDERED: PROPOFOL IV EMULSION 10 MG/ML 20 ML VIAL IV ONE ×2 (13:02)
--- NOTE | 2016-07-15 13:58 | DIAGNOSTIC IMAGING REPORT ---
LEFT KNEE 1 OR 2 VIEWS ROUTINE CLINICAL HISTORY: Postoperative evaluation. COMPARISON: None FINDINGS: Alignment of the total left knee arthroplasty is anatomic. There is no periprosthetic fracture or unexpected radiopaque foreign body. Drains are in place. IMPRESSION: Expected findings following total left knee arthroplasty. Electronically signed by: Varinder Fuentes M.D. 07/15/2016 1:57 PM Dictated Date/Time: 07/15/2016 1:56 PM
--- NOTE | 2016-07-15 14:10 | Anesthesiology Progress Note ---
Anesthesia Post Op Note Date & Time Jul 15, 2016 at 14:10 Vital Signs Pain Intensity: 0 Vital Signs Past 12 Hours Date Time Temp Pulse Resp B/P (MAP) Pulse Ox O2 Delivery O2 Flow Rate FiO2 07/15/16 14:00 68 16 110/55 98 Diffusion Mask 10 07/15/16 13:50 36.8 68 16 110/62 98 Diffusion Mask 10 07/15/16 13:39 36.8 68 16 118/67 98 Diffusion Mask 10 07/15/16 09:02 36.7 77 20 155/79 96 Room Air Notes Mental Status: alert / awake / arousable, participated in evaluation Pt Amnestic to Procedure: Yes Nausea / Vomiting: adequately controlled Pain: adequately controlled Airway Patency, RR, SpO2: stable & adequate BP & HR: stable & adequate Hydration State: stable & adequate Neuraxial Anesthesia: was administered, sensory block is resolving Anesthetic Complications: no major complications apparent
[2016-07-15] MEDS: D5W AND 1/2NSS + 20MEQ KCL 1,000 ML IV SCH (15:47)
[2016-07-15] MEDS: OXYCODONE HCL IR 5 MG TAB (IMMEDIATE RELEASE) PO PRN (18:39)
[2016-07-15] MEDS ORDERED: TRANEXAMIC ACID INJ 1,000 MG in SODIUM CHLORIDE 0.9% 100ML 100 ML IV SCH (19:00)
[2016-07-15] MEDS: CEFAZOLIN IV 2,000 MG in DEXTROSE 5% 50ML 50 ML IV SCH (19:49)
--- NOTE | 2016-07-15 20:20 | OPERATIVE REPORT ---
DATE OF OPERATION: 07/15/2016 PREOPERATIVE DIAGNOSIS: Degenerative arthritis, left knee. POSTOPERATIVE DIAGNOSIS: Same. PROCEDURE: Left total knee with patient matched implant. SURGEON: Dr. Rush. REFERRAL NURSE: JOHANA Calderon. ANESTHESIA: Spinal. BLOOD LOSS: 100 mL REPLACEMENT FLUIDS: 1500 mL crystalloid. DRAINS: Hemovac x2. CULTURES: None. COMPLICATIONS: None. COMPONENTS USED: Plascencia and Nephew Jourmatlock Knee System: Femur size 4, tibia size 2 x 10, patella size 32. NOTE: JOHANA Calderon was present and assisted throughout due to the complicated nature of this case. He helped with preparation and set up, first assisted throughout and personally closed the capsule, subcutaneous and skin layers and applied the postoperative dressing. DESCRIPTION: Following satisfactory spinal, the patient was supine. A tourniquet was placed but not inflated. The lower extremity was prepared with ChloraPrep and draped sterilely. Following a surgical time-out, a midline incision was made with a median parapatellar arthrotomy. The knee showed severe grade 4 changes throughout. The anterior cruciate ligament was absent and there was severe bone loss of the patella. The posterior cruciate ligament was excised. The patella was freehand cut and sized. Attention was turned to the femur. Using the patient matched femoral block, the distal femoral resection and rotation were set and completed. The 4-in-1 block was used to finish preparation of the femur. The patient matched tibial block was applied. Tibial resection was completed. Soft tissue balancing was completed and a trial reduction showed good tensioning and stability on the collateral ligaments, stable range of motion, and the patella tracked well. The trial components were removed. The capsule was prepared with the orthopedic cocktail and after irrigation, the components were cemented using Simplex G cement. A Betadine soak was performed. After 5 minutes, the Betadine was irrigated. The cement was hard, irrigation was performed and 2 drains were placed. The arthrotomy was closed with a running suture of 0 V-Loc. The subcutaneous tissues were closed with 1 and 2-0 Vicryl. Skin was closed with a running subcuticular stitch of 3-0 V-Loc. Dermabond and a surface wound VAC were applied. The patient was returned to her bed in stable condition. I attest to the content of the Intraoperative Record and any orders documented therein. Any exception s are noted below.
[2016-07-15] MEDS: ASPIRIN 81 MG ECTAB PO SCH (20:38)
[2016-07-15] MEDS: SENNA 8.6 MG TAB PO SCH (20:38)
[2016-07-15] MEDS: ACETAMINOPHEN 500 MG TAB PO SCH (21:32)
[2016-07-16] MEDS: D5W AND 1/2NSS + 20MEQ KCL 1,000 ML IV SCH ×2 (02:43→12:00)
[2016-07-16 03:49] VITALS: BP 124/71; PULSE 75; TEMP 36.5; O2SAT 92
[2016-07-16] MEDS: CEFAZOLIN IV 2,000 MG in DEXTROSE 5% 50ML 50 ML IV SCH (05:24)
[2016-07-16] MEDS: ACETAMINOPHEN 500 MG TAB PO SCH ×3 (05:25→21:32)
[2016-07-16 05:40] LABS: HEMATOCRIT 32.6 % (37-47); MEAN CELL VOLUME 86.7 fL (80-100); MEAN CORPUSCULAR HEMOGLOBIN 28.2 pg (25-34); MEAN CORPUSCULAR HGB CONC 32.5 g/dl (32-36); MEAN PLATELET VOLUME 10.5 fL (7.4-10.4); PLATELET COUNT 211 K/uL (130-400); RED BLOOD COUNT 3.76 M/uL (4.2-5.4); WHITE BLOOD COUNT 10.55 K/uL (4.8-10.8)
[2016-07-16 06:04] LABS: CREATININE 0.55 mg/dl (0.60-1.20); POTASSIUM 4.7 mmol/L (3.5-5.1)
[2016-07-16 07:28] VITALS: BP 127/69; PULSE 67; TEMP 36.5; O2SAT 95
--- NOTE | 2016-07-16 07:53 | Orthopedic Progress Note ---
Orthopedic Progress Note Date of Service Jul 16, 2016. Subjective Post OP Day: 1 (L TKA ) Reports: feeling well, pain controlled w PO medications, Denies: complaints, chest pain, SOB Objective calves soft nontender, N/V intact, dressing C/D/I, A&O x3, toes mobile, hemovac drainage (175 LAST SHIFT ) Date Time Temp Pulse Resp B/P (MAP) Pulse Ox O2 Delivery O2 Flow Rate FiO2 07/16/16 07:28 36.5 67 16 127/69 (88) 95 Room Air 07/16/16 03:49 36.5 75 16 124/71 (88) 92 Room Air 07/16/16 00:35 Room Air 07/15/16 23:00 36.5 68 16 121/71 (88) 93 Room Air 07/15/16 19:48 93 Room Air 07/15/16 19:20 Room Air 07/15/16 17:49 36.5 75 16 113/72 (86) 98 Nasal Cannula 3.0 07/15/16 16:40 36.6 70 16 125/71 (89) 99 Nasal Cannula 3.0 07/15/16 15:43 36.5 72 16 137/77 (97) 99 Nasal Cannula 2.0 07/15/16 15:15 36.4 70 16 148/86 (106) 99 Nasal Cannula 2.0 07/15/16 15:13 97 Nasal Cannula 2.0 07/15/16 14:45 36.5 71 16 133/69 (90) 97 Nasal Cannula 2.0 07/15/16 14:45 97 Nasal Cannula 2.0 07/15/16 14:30 68 16 123/61 97 Nasal Cannula 2 07/15/16 14:20 36.9 68 16 124/61 97 Nasal Cannula 2 07/15/16 14:10 68 16 120/60 97 Nasal Cannula 2 07/15/16 14:00 68 16 110/55 98 Diffusion Mask 10 07/15/16 13:50 36.8 68 16 110/62 98 Diffusion Mask 10 07/15/16 13:39 36.8 68 16 118/67 98 Diffusion Mask 10 07/15/16 09:02 36.7 77 20 155/79 96 Room Air Laboratory Results 24 Hours: Test 07/16/16 05:10 Hematocrit 32.6 % Hemoglobin 10.6 g/dL Assessment & Plan Assessment: POD 1 TKA Plan: PT TODAY GAIT WBAT PLAN DC HOME THUR W ADVANTAGE HH Inhouse Planning Pain Management: PO Tylenol, Oxy IR DVT Prophylaxis: TEDs, SCDs, ASA Discharge Planning Discharge Planning: home with home health Pain Management: PO Tylenol, Oxy IR DVT Prophylaxis: TEDs, SCDs, ASA
--- NOTE | 2016-07-16 08:20 | Discharge Instructions ---
Discharge Instructions Date of Service Jul 16, 2016. Admission Reason for Admission: Left Knee Degenerative Arthritis Discharge Discharge Diagnosis / Problem: sp left total knee Discharge Goals Goal(s): Decrease discomfort, Improve function, Increase independence Activity Recommendations Activity Limitations: per Instructions/Follow-up section . Instructions / Follow-Up Instructions / Follow-Up ACTIVITY RECOMMENDATIONS: SELF CARE INSTRUCTIONS AFTER TOTAL KNEE REPLACEMENT A. You may need to continue a physical therapy program after discharge from the hospital. There are several options available to you. Your doctor will assist you in selecting the best one for you. 1. An out-patient facility 2 to 3 times a week for therapy or home therapy. 2. Continue working on all exercises taught to you in the hospital. Your goals should be to increase bending of your knee to 90 degrees and beyond and to fully straighten your knee. B. You may progress at your own pace from walking with a walker or crutches to a cane; then to no assistive devices. C. Make walking a part of your daily routine. Be up as much as comfortable with rest periods throughout the day. Rest with leg elevation is very important. Use the ice wrap frequently for the first 3-4 weeks. D. There are no restrictions on activities. You may ride in a car, shop, participate in rug dyer helper and all social activities. E. Wear the long elastic stockings (EROS hose) 20 hours a day for 2 weeks after surgery. They can be removed several times a day for laundering and for a bath. F. You may shower, no tub baths until cleared by your doctor. SPECIAL CARE INSTRUCTIONS: VERY IMPORTANT TO READ AND REVIEW A. There are a few signs you need to watch for after you are home. Call [facility] [place] if you notice any of the followin. Increased severe knee pain. Some pain is expected especially when you exercise. 2. Increased swelling in your leg or knee; pain or swelling of the calf muscle in either lower leg. 3. Any fluid drainage from the incision. 4. Shortness of breath or chest pain. B. Please call [facility] [place] at if you have any concerns or questions about your operation or recovery. The doctor or his nurse will return your call promptly. C. You must take antibiotics before dental work, bladder, bowel or other surgery. Your doctor will provide you with a permanent care to carry describing this precaution. IMPORTANT: * REMEMBER TO TAKE ASPIRIN, 81 MG, TWICE DAILY FOR 4 WEEKS UNLESS OTHERWISE DIRECTED. THIS IS YOUR BLOOD THINNER. * HIGH RISK PATIENTS MAY BE PRESCRIBED A STRONGER BLOOD THINNER. THIS WILL BE PROVIDED AT DISCHARGE. * CALL IF INCREASED PAIN, REDNESS, DRAINAGE OR FEVER GREATER THAT 101. * WEAR EROS HOSE 20 HOURS PER DAY FOR 2 WEEKS. Prevena- This is a large suction dressing covering your incision. This will help pull any excess drainage from the wound and allow your incision to heal properly. You may shower with this if you can keep the unit outside of the shower. If any bleeding or leakage is noted please call your doctor's office. This will remain on your incision for 7 days and then should be removed. This can be done yourself or by the home nursing staff if applicable. The entire unit is disposable once removed. Once removed, keep incision clean and dry. If redness or drainage is noted, please call your surgeon. FOLLOW UP VISIT: If appointment is not already scheduled: Please call [facility] [place] to make a follow-up appointment for 2 weeks after your surgery at . Current Hospital Diet Patient's current hospital diet: Regular Diet Discharge Diet Recommended Diet: Regular Diet Procedures Procedures Performed: Left Total Knee Arthroplasty Pending Studies Studies pending at discharge: no Medical Emergencies . Who to Call and When: Medical Emergencies: If at any time you feel your situation is an emergency, please call 911 immediately. . Non-Emergent Contact Non-Emergency issues call your: Surgeon . "Provider Documentation" section prepared by Aria Vazquez. . VTE Core Measure Inpt VTE Proph given/why not?: Other Anticoagulation, T.E.D. Stockdony, SCD's [place] Drug Monitoring Program Search Results: patient reviewed within database, no issues identified
--- NOTE | 2016-07-16 08:36 | Anesthesiology Progress Note ---
Anesthesia Post Op Note Date & Time Jul 16, 2016 at 08:36 Vital Signs Vital Signs Past 12 Hours Date Time Temp Pulse Resp B/P (MAP) Pulse Ox O2 Delivery O2 Flow Rate FiO2 07/16/16 08:27 Room Air 07/16/16 07:28 36.5 67 16 127/69 (88) 95 Room Air 07/16/16 03:49 36.5 75 16 124/71 (88) 92 Room Air 07/16/16 00:35 Room Air 07/15/16 23:00 36.5 68 16 121/71 (88) 93 Room Air Notes Mental Status: alert / awake / arousable, participated in evaluation Pt Amnestic to Procedure: Yes Nausea / Vomiting: adequately controlled Pain: adequately controlled Airway Patency, RR, SpO2: stable & adequate BP & HR: stable & adequate Hydration State: stable & adequate Neuraxial Anesthesia: was administered, sensory block resolved Anesthetic Complications: no major complications apparent
[2016-07-16] MEDS: MULTIVITAMIN TAB PO SCH (09:58)
[2016-07-16] MEDS: MAGNESIUM OXIDE 400 MG TAB PO SCH (09:58)
[2016-07-16] MEDS: ESCITALOPRAM OXALATE 20 MG TAB PO SCH (09:58)
[2016-07-16] MEDS: ASCORBIC ACID 500 MG TAB PO SCH (09:58)
[2016-07-16] MEDS: ASPIRIN 81 MG ECTAB PO SCH ×2 (09:58→21:31)
[2016-07-16] MEDS: PANTOprazole SOD 40 MG TAB PO SCH (09:58)
[2016-07-16] MEDS: VALSARTAN 80 MG TAB PO SCH (09:59)
[2016-07-16] MEDS: CALCIUM 600MG + VIT D 400 IU TAB PO SCH (09:59)
[2016-07-16 11:12] VITALS: BP 127/69; PULSE 61; TEMP 36.9; O2SAT 96
[2016-07-16] MEDS: OXYCODONE HCL IR 5 MG TAB (IMMEDIATE RELEASE) PO PRN ×4 (12:09→21:31)
[2016-07-16 15:06] VITALS: BP 131/69; PULSE 62; TEMP 36.8; O2SAT 96
[2016-07-16] MEDS: SENNA 8.6 MG TAB PO SCH (21:31)
[2016-07-16 23:45] VITALS: BP 154/77; PULSE 75; TEMP 36.4; O2SAT 96
[2016-07-17] MEDS: OXYCODONE HCL IR 5 MG TAB (IMMEDIATE RELEASE) PO PRN ×2 (04:07→10:54)
[2016-07-17] MEDS: ACETAMINOPHEN 500 MG TAB PO SCH (06:13)
[2016-07-17 07:11] VITALS: BP 123/77; PULSE 82; TEMP 36.5; O2SAT 91
--- NOTE | 2016-07-17 07:59 | Orthopedic Progress Note ---
Orthopedic Progress Note Date of Service Jul 17, 2016. Subjective Post OP Day: 2 Reports: feeling well, Denies: chest pain, SOB, nausea / vomiting, light headedness, calf pain Additional Notes: PATIENT STATES SHE HAD SOME CONFUSION OVERNIGHT. SEEMS BETTER THIS AM. Objective calves soft nontender, N/V intact, dressing C/D/I (PREVENA), A&O x3, toes mobile Date Time Temp Pulse Resp B/P (MAP) Pulse Ox O2 Delivery O2 Flow Rate FiO2 07/17/16 07:11 36.5 82 16 123/77 (92) 91 Room Air 07/17/16 07:05 Room Air 07/16/16 23:45 Room Air 07/16/16 23:45 36.4 75 18 154/77 (102) 96 Room Air 07/16/16 15:15 Room Air 07/16/16 15:06 36.8 62 16 131/69 (89) 96 Room Air 07/16/16 11:12 36.9 61 16 127/69 (88) 96 Room Air 07/16/16 08:27 Room Air Assessment & Plan Assessment: POD 2 TKA Plan: CONFUSION- WILL TRY TO LIMIT NARCOTICS. Inhouse Planning Pain Management: PO Tylenol, Oxy IR DVT Prophylaxis: TEDs, SCDs, ASA Discharge Planning Discharge Planning: home with home health (SD HOME TODAY WITH ADVANTAGE) Pain Management: PO Tylenol, Oxy IR DVT Prophylaxis: TEDs, SCDs, ASA
[2016-07-17] MEDS ORDERED: RXC5 PO (08:01)
[2016-07-17] MEDS ORDERED: ONDA8TAB6 PO (08:01)
[2016-07-17] MEDS ORDERED: ASPEC81 PO (08:01)
[2016-07-17] MEDS ORDERED: ACET-1256 PO (08:01)
[2016-07-17] MEDS ORDERED: SNK PO (08:01)
[2016-07-17] MEDS: ESCITALOPRAM OXALATE 20 MG TAB PO SCH (08:25)
[2016-07-17] MEDS: ASPIRIN 81 MG ECTAB PO SCH (08:25)
[2016-07-17] MEDS: MAGNESIUM OXIDE 400 MG TAB PO SCH (08:25)
[2016-07-17] MEDS: CALCIUM 600MG + VIT D 400 IU TAB PO SCH (08:25)
[2016-07-17] MEDS: PANTOprazole SOD 40 MG TAB PO SCH (08:25)
[2016-07-17] MEDS: VALSARTAN 80 MG TAB PO SCH (08:25)
[2016-07-17] MEDS: MULTIVITAMIN TAB PO SCH (08:25)
[2016-07-17] MEDS: ASCORBIC ACID 500 MG TAB PO SCH (08:26)
[2016-07-17 09:12] VITALS: BP 123/77; PULSE 82; TEMP 36.5; O2SAT 91
[2016-07-18] MEDS ORDERED: CeleBREX 200 MG CAP PO SCH (09:00)
--- NOTE | 2016-07-21 11:05 | DISCHARGE SUMMARY ---
DISCHARGE DIAGNOSIS: Degenerative joint disease left knee. SECONDARY DIAGNOSES: Hypertension, asthma, anxiety, obesity. CONSULTS: None. COMPLICATIONS: None. PROCEDURES: Left total knee arthroplasty performed by Dr. Emory Rush on 07/15/2016. BRIEF HISTORY OF PRESENT ILLNESS: As dictated in history and physical. HOSPITAL SUMMARY: The patient was admitted on the above date and had the above-noted surgery performed which she tolerated well. On her first postoperative day, she was feeling well and pain was controlled. She had no complaints. Calves were soft and nontender. Dressings were clean, dry and intact. Toes were mobile and vital signs were stable. She is afebrile. Hemoglobin was 10.6 and she was started on physical therapy protocol and continued on DVT prophylaxis and pain management. By her second postoperative day, she was feeling well. She had had some confusion overnight which was much better that morning. Calves were soft, nontender, neurovascularly intact. Dressings were clean, dry and intact. Toes were mobile. Vital signs were stable. She is afebrile. Plans were to try to limit narcotics and she was continued on her PT protocol. She was remaining stable and it was felt she could be discharged to home on 07/17/2016. For further review, please see chart. LABORATORY AND X-RAY DATA: As per chart. DISCHARGE INSTRUCTIONS: The patient was discharged to home in satisfactory condition on 07/17/2016. DIET: Regular. ACTIVITY: Follow TK instruction sheets and special care instructions as noted. Follow up with Dr. Emory Rush in 2 weeks. The patient to call for appointment if one has not been made for you. DISCHARGE MEDICATIONS: New: Aspirin 81 mg p.o. b.i.d., Zofran 8 mg p.o. q. 8 hours p.r.n., oxycodone 5-10 mg p.o. q. 4 hours p.r.n., senna 17.2 mg p.o. at bedtime, acetaminophen 1000 mg p.o. q. 8 hours for 30 days, and resume home meds as listed.
== END 2016-07-17 13:27 | disposition home health service (06) | DRG 470 ==
LOC: C.ACU 08:30 → C.3E 09:00 → ENRESERV 14:22
PROVIDERS: ADMIT Orthopaedic Surgery; ATTEND Orthopaedic Surgery
PROC: 0SRD0J9 Replacement of Left Knee Joint with Synthetic Substitute, Cemented, Open Approach (ICD-10-PCS; principal; 2016-07-15 10:45)
DX: M17.12 Unilateral primary osteoarthritis, left knee (principal); M21.162 Varus deformity, not elsewhere classified, left knee; R41.0 Disorientation, unspecified; I10 Essential (primary) hypertension; J45.909 Unspecified asthma, uncomplicated; F41.9 Anxiety disorder, unspecified; F32.9 Major depressive disorder, single episode, unspecified; E66.9 Obesity, unspecified; G47.33 Obstructive sleep apnea (adult) (pediatric); Z68.33 Body mass index [BMI] 33.0-33.9, adult; Z96.651 Presence of right artificial knee joint; Z79.51 Long term (current) use of inhaled steroids; Z79.1 Long term (current) use of non-steroidal anti-inflammatories (NSAID); Z79.899 Other long term (current) drug therapy